=== PATIENT | female | born 2000 | race Hispanic/Latino ===

== ENCOUNTER 2019-09-15 19:26 | Emergency (ER) | payer MEDICAID ==
[2019-09-15 19:59] VITALS: BP 111/59
--- NOTE | 2019-09-15 19:59 | Emergency Department Report ---
Chief Complaint: Fever Stated Complaint: COUGH,FEVER,MCKAYLA,DIARRHEA Time Seen by Provider: 09/15/19 19:54 - HPI History of Present Illness: pt is a 19 yo female who presents to the ED with c/o body aches that began 3-4 days ago. she has associated chills. she states her temperature at its highest was 100.0. she has not taken anything for fever. she states she has had diarrhea, she states she only has two episodes a day but it is not every day. she denies any n/v. she states she has an occasional cough but she states it has "gone down and is better." she does not report any CP, SOB, leg swelling. no PMHx. no allergies to meds. she states she has had a positive contact at work and with her boyfriend. she is a non smoker. Patient was in the emergency room last week for similar symptoms and had a normal chest x-ray at that time. Patient's labs are stable, heart rate is the same as previous visits She has no tachycardia, no fever, no hypoxia, no hypotension On exam: Non toxic appearing, no acute distress atraumatic, normocephalic normal appearance of the eyes, PERRL, EOMI, no periorbital edema or ecchymosis moist mucus membranes, normal oropharynx, normal nasal turbinates, normal TMs and canals bilaterally regular heart rate and rhythm, no gallops, no rubs, no murmurs breath sounds are clear bilaterally, no w/r/r, no stridor, no respiratory distress, no accessory muscle use A&O x4, no focal neuro deficit skin is warm, dry, intact Patient is presenting with viral-like symptoms Could be related to COVID-19 as she has had a positive contact She is not having chest pain or shortness of breath She has no signs of dehydration Her vitals are normal She is not hypoxic or tachycardic or febrile she has no past medical history She is a non-smoker Discussed supportive care and symptomatic treatment with patient Discussed the importance of oral hydration Discussed in detail with patient strict return precautions Discussed self quarantine advised pt please increase your fluid intake for the next several days. make take tylenol as needed for fever and body aches. follow up with a primary care doctor in 3 days for reexamination. discuss COVID testing with the primary care doctor, health department, [facility], or [facility]. please self quarantine for 2 weeks. please do not go out in public. if you are around others at home wear a mask. if you need to cough or sneeze please do so in a napkin and immediately throw it away and wash your hands. wash your hands frequently, wipe every thing down. return to the emergency room for any new or worsening symptoms Medical screening examination performed and there is no threat to life or limb at this time - Exam Vital Signs: Vital Signs 09/15/19 19:31 Temperature 99.0 F Pulse Rate 49 L Respiratory 18 Rate Blood Pressure 109/62 O2 Sat by Pulse 99 Oximetry MSE screening note: Focused history and physical exam performed. ED Disposition for MSE Clinical Impression: Encounter for medical screening examination Disposition: MED SCREENING EXAM-LEFT Is pt being admited?: No Does the pt Need Aspirin: No Condition: Stable Instructions: COVID-19, Viral Syndrome (ED) Additional Instructions: please increase your fluid intake for the next several days. make take tylenol as needed for fever and body aches. follow up with a primary care doctor in 3 days for reexamination. discuss COVID testing with the primary care doctor, health department, [facility], or [facility]. please self quarantine for 2 weeks. please do not go out in public. if you are around others at home wear a mask. if you need to cough or sneeze please do so in a napkin and immediately throw it away and wash your hands. wash your hands frequently, wipe every thing down. return to the emergency room for any new or worsening symptoms Referrals: RACHEL CAGLE MD [Staff Physician] - 2-[address] [facility] [Provider Group] - 2-3 Days [facility] [Outside] - 2-3 Days [facility] [Outside] - 2-3 Days Forms: Work/School Release Form(ED) Time of Disposition: 20:00 Print Language: SLOVAK
== END 2019-09-15 20:23 | disposition left against medical advice (07) ==
LOC: ED 19:26
DX: R50.9 Fever, unspecified (principal); R19.7 Diarrhea, unspecified; M79.10 Myalgia, unspecified site; Z53.21 Procedure and treatment not carried out due to patient leaving prior to being seen by health care provider

== ENCOUNTER 2019-09-28 05:37 | Emergency (ER) | payer MEDICAID ==
--- NOTE | 2019-09-28 06:37 | XRay Report ---
LEFT HIP 2 VIEWS INDICATION / CLINICAL INFORMATION: Fall with left hip pain. COMPARISON: None available. FINDINGS: BONES / JOINT(S): The hip and SI joint spaces are well-maintained. There is no evidence of fracture o r dislocation. SOFT TISSUES: No significant abnormality. ADDITIONAL FINDINGS: None. Signer Name: Seth Youngblood MD Signed: 09/28/2019 6:33 AM Workstation Name: [email or web address]
[2019-09-28] MEDS ORDERED: MORPHINE 2 MG/1 ML INJ IV ONE (08:19)
--- NOTE | 2019-09-28 08:25 | Emergency Department Report ---
HPI - General Chief Complaint: Extremity Injury, Lower Time Seen by Provider: 09/28/19 08:01 - HPI HPI: This is a 19-year-old -Citizen Of [place] female who presents to the emergency department with a complaint of some left lower back pain after she fell off of the table last night. She denies hitting her head or any loss of consciousness. Since that time she has been having difficulty bearing weight to the left lower extremity. She has not taken anything for symptoms prior to presentation. No past medical history. ED Past Medical Hx - Past Medical History Previous Medical History?: No - Surgical History Past Surgical History?: No - Social History Smoking Status: Current Every Day Smoker Substance Use Type: None - Medications Home Medications: Home Medications Medication Instructions Recorded Confirmed Last Taken Type guaiFENesin [Robitussin] 5 ml PO TID PRN #100 ml 09/10/19 Unknown Rx HYDROcodone/APAP 5-325 [[place] 1 each PO Q6HR PRN #12 tablet 09/28/19 Unknown Rx 5/325] Ibuprofen [Motrin 600 MG tab] 600 mg PO Q8H PRN #20 tablet 09/28/19 Unknown Rx ED Review of Systems ROS: Stated complaint: LF HIP PAIN S/P FALL Other details as noted in HPI Comment: All other systems reviewed and negative Constitutional: denies: chills, fever Respiratory: denies: shortness of breath Cardiovascular: denies: chest pain Gastrointestinal: denies: abdominal pain Musculoskeletal: back pain, arthralgia, myalgia Neurological: denies: headache, numbness, paresthesias Physical Exam - Physical Exam Vital Signs: Vital Signs 09/28/19 05:43 Temperature 98.6 F Pulse Rate 87 Respiratory 20 Rate Blood Pressure 134/82 O2 Sat by Pulse 100 Oximetry Physical Exam: GENERAL: The patient is well-developed well-nourished. HENT: Normocephalic. Atraumatic. Patient has moist mucous membranes. EYES: Extraocular motions are intact. NECK: Supple. Trachea is midline. CHEST/LUNGS: Clear to auscultation. There is no respiratory distress noted. HEART/CARDIOVASCULAR: Regular. There is no tachycardia. ABDOMEN: Abdomen is soft, nontender. Patient has normal bowel sounds. SKIN: Skin is warm and dry. NEURO: The patient is awake, alert, and oriented. The patient is cooperative. The patient has no focal neurologic deficits. Normal speech. MUSCULOSKELETAL: There is no tenderness to palpation of any of the 4 extremities. No tenderness to palpation with compression of the pelvis. There is no limitation range of motion. BACK: No midline thoracic or lumbar tenderness to palpation. There is some reproducible left lumbar paraspinal tenderness to palpation. ED Course Vital Signs 09/28/19 05:43 Temperature 98.6 F Pulse Rate 87 Respiratory 20 Rate Blood Pressure 134/82 O2 Sat by Pulse 100 Oximetry ED Medical Decision Making - Lab Data Result diagrams: 09/28/19 08:23 09/28/19 08:23 - Radiology Data Radiology results: report reviewed, image reviewed interpreted by me: X-ray of the left hip does not show any fracture or dislocation. XR spine lumbosacral 2-3V INDICATION / CLINICAL INFORMATION: fall, back pain. COMPARISON: None available. FINDINGS: BONES/JOINT(S): No acute fracture or subluxation. No significant degenerative changes. SOFT TISSUES: No significant abnormality. ADDITIONAL FINDINGS: None. CT ABDOMEN AND PELVIS WITH CONTRAST HISTORY: Trauma, left-sided abdominal pain COMPARISON: None TECHNIQUE: Routine abdominal and pelvic CT exam performed following intravenous contrast administration. The patient received 100 mL of IV Omnipaque 300. All CT scans at this location are performed using CT dose reduction for ALARA by means of automated exposure control. FINDINGS: CT ABDOMEN: Lung Bases: No significant abnormality. Liver: No significant abnormality. Biliary: No significant abnormality. Spleen: No significant abnormality. Unenlarged. Pancreas: No significant abnormality. Adrenals: No significant abnormality. Kidneys: No significant abnormality. Lymphatics: No lymphadenopathy. Vasculature: No significant abnormality. Bowel/Peritoneum: No significant abnormality. No free air. No free fluid. CT PELVIC: : No significant abnormality. Lymphatics: No lymphadenopathy. Osseous Structures: There are nondisplaced fractures of the left L2 and L3 transverse processes. There are no other acute fractures. Additional Findings: None IMPRESSION: 1. Nondisplaced fractures of the left L2 and L3 transverse processes. 2. No additional acute findings. - Medical Decision Making This patient presents to the emergency department with a complaint of pain to the left lower back after she fell onto her back from a table last night. Initially, through triage, the patient had an x-ray of her left hip that did not show any fracture, dislocation, or any acute process. On examination the patient does not have any midline thoracic or lumbar tenderness to palpation, step-off or deformity. She has reproducible pain to the lumbar left paraspinal and lateral muscles/back. An x-ray was done of the lumbar spine but it was read by radiology as no fracture, subluxation, or any acute process. The patient still complained of moderate discomfort after receiving IV analgesia, and her pain was not midline, so a CT scan of the abdomen pelvis with IV contrast was completed that showed nondisplaced fractures of the left L2 and L3 transverse process. All of the lab and imaging results were discussed with the patient, as well as the plan for outpatient follow-up with an orthopedist. The patient has been placed on crutches and given a prescription for pain medication. She was given multiple referrals for local orthopedist. She will return to the ER with any worsening of her symptoms or any acute distress. Critical Care Time: No Critical care attestation.: If time is entered above; I have spent that time in minutes in the direct care of this critically ill patient, excluding procedure time. ED Disposition Clinical Impression: Fracture of transverse process of lumbar vertebra Qualifiers: Encounter type: initial encounter Fracture type: closed Qualified Code(s): S32.009A - Unspecified fracture of unspecified lumbar vertebra, initial encounter for closed fracture Disposition: - TO HOME OR SELFCARE Is pt being admited?: No Condition: Stable Additional Instructions: You have a fracture of the left transverse process of your L2 and L3 lumbar spine. There is no fracture of the vertebral body. Please try and avoid any further falls or any trauma. Avoid any contact sports. Do not lift anything heavier than 10 lbs. I am giving you multiple referrals for local orthopedic groups to follow-up regarding your injury. Return to the emergency department with any worsening of your symptoms or any acute distress. You have been prescribed a medication that is sedating and therefore should not be taken prior to driving, working, and responsible for children and in no way should be mixed with alcohol of any quantity. Prescriptions: Ibuprofen [Motrin 600 MG tab] 600 mg PO Q8H PRN #20 tablet PRN Reason: Pain HYDROcodone/APAP 5-325 [[place] 5/325] 1 each PO Q6HR PRN #12 tablet PRN Reason: Pain Referrals: MARITZA VO MD [Primary Care Provider] - 3-5 Days MEG MARINO MD [Staff Physician] - 3-5 Days [facility] [Provider Group] - 3-5 Days Time of Disposition: 12:55
[2019-09-28 08:43] LABS: Eosinophils % (Auto) 0.9 % (0.0-4.3); Hematocrit 36.3 % (30.3-42.9); Hemoglobin 11.6 gm/dl (10.1-14.3); Lymphocytes # (Auto) 1.4 K/mm3 (1.2-5.4); Lymphocytes % (Auto) 31.2 % (13.4-35.0); Mean Corpuscular HGB Conc 32 % (30-34); Mean Corpuscular Volume 85 fl (79-97); Monocytes # (Auto) 0.6 K/mm3 (0.0-0.8); Monocytes % (Auto) 14.5 % (0.0-7.3); Platelet Count 212 K/mm3 (140-440); Red Blood Count 4.25 M/mm3 (3.65-5.03); Red Cell Distribution Width 15.8 % (13.2-15.2)
--- NOTE | 2019-09-28 08:56 | XRay Report ---
XR spine lumbosacral 2-3V INDICATION / CLINICAL INFORMATION: fall, back pain. COMPARISON: None available. FINDINGS: BONES/JOINT(S): No acute fracture or subluxation. No significant degenerative changes. SOFT TISSUES: No significant abnormality. ADDITIONAL FINDINGS: None. Signer Name: Yaw Weir MD Signed: 09/28/2019 8:52 AM Workstation Name: [email or web address]
[2019-09-28 09:51] LABS: BUN/Creatinine Ratio 19; Blood Urea Nitrogen 13 mg/dL (7-17); Calcium 9.5 mg/dL (8.4-10.2); Hemolysis Index 2
[2019-09-28] MEDS ORDERED: KETOROLAC 30 MG/1 ML INJ IV ONE (12:10)
--- NOTE | 2019-09-28 12:16 | Cat Scan Report ---
CT ABDOMEN AND PELVIS WITH CONTRAST HISTORY: Trauma, left-sided abdominal pain COMPARISON: None TECHNIQUE: Routine abdominal and pelvic CT exam performed following intravenous contrast administrat ion. The patient received 100 mL of IV Omnipaque 300. All CT scans at this location are performed usi ng CT dose reduction for ALARA by means of automated exposure control. FINDINGS: CT ABDOMEN: Lung Bases: No significant abnormality. Liver: No significant abnormality. Biliary: No significant abnormality. Spleen: No significant abnormality. Unenlarged. Pancreas: No significant abnormality. Adrenals: No significant abnormality. Kidneys: No significant abnormality. Lymphatics: No lymphadenopathy. Vasculature: No significant abnormality. Bowel/Peritoneum: No significant abnormality. No free air. No free fluid. CT PELVIC: : No significant abnormality. Lymphatics: No lymphadenopathy. Osseous Structures: There are nondisplaced fractures of the left L2 and L3 transverse processes. Ther e are no other acute fractures. Additional Findings: None IMPRESSION: 1. Nondisplaced fractures of the left L2 and L3 transverse processes. 2. No additional acute findings. Signer Name: Yaw Weir MD Signed: 09/28/2019 12:11 PM Workstation Name: [id number]
[2019-09-28] MEDS ORDERED: MORPHINE 4 MG/1 ML INJ IV ONE (12:25)
[2019-09-28 13:45] VITALS: BP 112/67
== END 2019-09-28 13:30 | disposition home or self-care (01) ==
LOC: ED 05:37
DX: S32.009A Unspecified fracture of unspecified lumbar vertebra, initial encounter for closed fracture (principal); F17.200 Nicotine dependence, unspecified, uncomplicated; Z79.1 Long term (current) use of non-steroidal anti-inflammatories (NSAID); Z79.899 Other long term (current) drug therapy; W18.39XA Other fall on same level, initial encounter; Y93.89 Activity, other specified; Y92.89 Other specified places as the place of occurrence of the external cause; Y99.8 Other external cause status
CPT/HCPCS: 36415; 72100; 73502; 74177; 80048; 84703; 85025; 96374; 96375; 96376; 99285; J1885; J2270; Q9967

== ENCOUNTER 2020-03-10 17:28 | Emergency (ER) | payer MEDICAID ==
[2020-03-10 20:03] VITALS: BP 113/46
--- NOTE | 2020-03-10 20:56 | Emergency Department Report ---
Chief Complaint: Upper Respiratory Infection Stated Complaint: SICK/COLD Time Seen by Provider: 03/10/20 20:52 - HPI History of Present Illness: Patient is a 20-year-old female presents emergency room complaints of cold symptoms that began 2 days ago. She has associated generalized body aches, chills, nasal congestion, rhinorrhea, sneezing. She denies any fever, cough, shortness of breath, chest pain, abdominal pain, vomiting, diarrhea. She denies any past medical history allergies medications. She states her last menstrual cycle was 02/09/2020, she denies any abdominal pain or vaginal bleeding, she denies any possibility of . She states that she has been taking TheraFlu and ynbm-bkv-ptuqane cold medication. She denies any sick contacts or recent travel. She states that she is a non-smoker. Vitals are all normal No hypoxia, no tachycardia, no fever On exam: Non toxic appearing, no acute distress atraumatic, normocephalic normal appearance of the eyes, PERRL, EOMI, no periorbital edema or ecchymosis moist mucus membranes, normal TMs and canals bilaterally, normal oropharynx, no sinus tenderness palpation bilaterally regular heart rate and rhythm, no gallops, no rubs, no murmurs breath sounds are clear bilaterally, no w/r/r, no stridor, no respirations, no accessory muscle use A&O x4, no focal neuro deficit skin is warm, dry, intact Patient is presenting with viral URI seems more likely to be a common cold She has no clinical signs of bacterial pneumonia or bacterial bronchitis No clinical signs of dehydration Patient is presenting during a COVID-19 pandemic, discussed COVID-19 with patient, discussed return precautions, discussed outpatient testing, discussed self quarantine She has no signs of severe COVID-19 She does not meet hospital criteria for admission or for hospital COVID-19 testing Discussed supportive care and symptomatic treatment with patient Patient referred to primary care doctor Discussed strict return precautions in detail patient Medical screening examination performed there is no threat to life or limb at this time - Exam Vital Signs: Vital Signs 03/10/20 19:21 Temperature 97.9 F Pulse Rate 63 Respiratory 16 Rate Blood Pressure 113/46 O2 Sat by Pulse 100 Oximetry MSE screening note: Focused history and physical exam performed. ED Disposition for MSE Clinical Impression: Viral URI Disposition: MED SCREENING EXAM-LEFT Is pt being admited?: No Does the pt Need Aspirin: No Condition: Stable Instructions: Viral Respiratory Infection Additional Instructions: Please increase your fluid intake over the next several days. May take Tylenol as needed for fever or body aches. May take aduv-hcq-yowoshr cold symptom relief medication such as Mucinex and use over the counter flonase nasal spray. Follow-up with a primary care doctor for reexamination. Return to emergency room immediately for any new or worsening symptoms including but not limited to difficulty breathing, shortness of breath, severe chest pain, unable to tolerate by mouth intake, etc. Please self quarantine for 10 days from the onset of your symptoms. Please do not go out in public. If you are around others at home please wear a mask. If you need to cough or sneeze please do so in a napkin and immediately throw it away and immediately wash your hands. Wash your hands frequently. Wipe everything down. Recommend for you to get COVID-19 testing, may have this done at primary care doctor, health department, [facility] testing center. Referrals: RACHEL CAGLE MD [Staff Physician] - 2-3 Days [facility] [Provider Group] - 2-3 Days Forms: Work/School Release Form(ED) Time of Disposition: 20:55 Print Language: FAROESE
== END 2020-03-10 21:30 | disposition left against medical advice (07) ==
LOC: ED 17:28
DX: J00 Acute nasopharyngitis [common cold] (principal); Z53.21 Procedure and treatment not carried out due to patient leaving prior to being seen by health care provider

== ENCOUNTER 2021-07-25 23:12 | Emergency (ER) | payer MEDICAID ==
[2021-07-26] MEDS ORDERED: BENZONATATE 100 MG CAP PO ONE (03:51)
[2021-07-26] MEDS ORDERED: predniSONE 20 MG TAB PO ONE (03:51)
[2021-07-26] MEDS ORDERED: KETOROLAC 10 MG TAB PO ONE (03:51)
[2021-07-26] MEDS ORDERED: ACETAMINOPHEN W/CODEINE 300-30 MG TAB PO ONE (03:52)
--- NOTE | 2021-07-26 03:57 | Emergency Department Report ---
- General Chief Complaint: Upper Respiratory Infection Stated Complaint: FLU LIKE SYMPTOMS/ABD & CHEST PAIN Time Seen by Provider: 07/26/21 03:08 Source: patient Mode of arrival: Ambulatory Limitations: No Limitations - History of Present Illness Initial Comments: 21 yof with no pmh presents to ed for evaluation of few day history of body aches, fever, sweats, cough, and decreased appetite. She states that her Tmax was 101.9. She denies cp and sob. She states that pain is 9/10. MD Complaint: fever, cough, rhinorrhea, nasal congestion -: days(s) (2-3) Severity: severe Severity scale (0 -10): 10 Quality: aching Consistency: constant Associated Symptoms: fever, myalgias, headache, rhinorrhea, nasal congestion, cough, nausea, diarrhea. denies: chills, diaphoresis, sore throat, stiff neck, chest pain, shortness of breath, abdominal pain, vomiting, dysuria, rash, hoarseness - Related Data Previous Rx's Medication Instructions Recorded Last Taken Type guaiFENesin [Robitussin] 5 ml PO TID PRN #100 ml 09/10/19 Unknown Rx HYDROcodone/APAP 5-325 [[place] 1 each PO Q6HR PRN #12 tablet 09/28/19 Unknown Rx 5/325] Ibuprofen [Motrin 600 MG tab] 600 mg PO Q8H PRN #20 tablet 09/28/19 Unknown Rx Benzonatate [Tessalon Perles] 100 mg PO Q8HR #21 cap 07/26/21 Unknown Rx Prednisone [predniSONE 10 mg 10 mg PO .TAPER #1 pack 07/26/21 Unknown Rx (6-Day Pack, 21 Tabs)] guaiFENesin/CODEINE [Robitussin AC] 10 ml PO TID PRN #120 ml 07/26/21 Unknown Rx Allergies Allergy/AdvReac Type Severity Reaction Status Date / Time No Known Allergies Allergy Verified 09/15/19 19:35 ED Review of Systems ROS: Stated complaint: FLU LIKE SYMPTOMS/ABD & CHEST PAIN Other details as noted in HPI Comment: All other systems reviewed and negative Constitutional: fever. denies: chills ENT: congestion. denies: ear pain Respiratory: cough. denies: orthopnea, shortness of breath, SOB with exertion, SOB at rest, stridor, wheezing Cardiovascular: denies: chest pain, palpitations, dyspnea on exertion, orthopnea, edema, syncope, paroxysmal nocturnal dyspnea Gastrointestinal: denies: abdominal pain, nausea, vomiting Genitourinary: denies: urgency, dysuria, frequency, hematuria, discharge Musculoskeletal: myalgia. denies: back pain Neurological: headache ED Past Medical Hx - Social History Smoking Status: Current Some Day Smoker Substance Use Type: None - Medications Home Medications: Home Medications Medication Instructions Recorded Confirmed Last Taken Type guaiFENesin [Robitussin] 5 ml PO TID PRN #100 ml 09/10/19 Unknown Rx HYDROcodone/APAP 5-325 [[place] 1 each PO Q6HR PRN #12 tablet 09/28/19 Unknown Rx 5/325] Ibuprofen [Motrin 600 MG tab] 600 mg PO Q8H PRN #20 tablet 09/28/19 Unknown Rx Benzonatate [Tessalon Perles] 100 mg PO Q8HR #21 cap 07/26/21 Unknown Rx Prednisone [predniSONE 10 mg 10 mg PO .TAPER #1 pack 07/26/21 Unknown Rx (6-Day Pack, 21 Tabs)] guaiFENesin/CODEINE [Robitussin AC] 10 ml PO TID PRN #120 ml 07/26/21 Unknown Rx ED Physical Exam - General Limitations: No Limitations General appearance: alert, in no apparent distress - Head Head exam: Present: atraumatic, normocephalic - Eye Eye exam: Present: normal appearance. Absent: conjunctival injection - ENT ENT exam: Absent: normal exam (bilateral nasal mucosal edema), normal orophraynx (erythema to posterior oropharynx) - Neck Neck exam: Present: normal inspection. Absent: tenderness, meningismus, lymphadenopathy - Respiratory Respiratory exam: Present: normal lung sounds bilaterally, chest wall tenderness. Absent: respiratory distress, wheezes, rales, rhonchi, stridor - Cardiovascular Cardiovascular Exam: Present: regular rate, normal heart sounds - GI/Abdominal GI/Abdominal exam: Present: soft, normal bowel sounds. Absent: distended, tenderness, guarding, rebound, rigid - Extremities Exam Extremities exam: Present: normal inspection, normal capillary refill. Absent: pedal edema, joint swelling, calf tenderness - Back Exam Back exam: Present: normal inspection. Absent: CVA tenderness (R), CVA tenderness (L) - Neurological Exam Neurological exam: Present: alert, oriented X3, normal gait - Psychiatric Psychiatric exam: Present: normal affect, normal mood - Skin Skin exam: Present: warm, dry, normal color ED Course Vital Signs 07/26/21 07/26/21 02:10 04:22 Temperature 101.9 F H Pulse Rate 78 72 Respiratory 20 12 Rate Blood Pressure 106/65 116/72 [Right] O2 Sat by Pulse 100 100 Oximetry ED Medical Decision Making - Medical Decision Making 21 yof with no pmh presents to ed for evaluation of few day history of body aches, fever, sweats, cough, and decreased appetite. She states that her Tmax was 101.9. She denies cp and sob. She states that pain is 9/10. Exam and symptoms consistent with viral syndrome. She will be treated with steroid pack, tessalon perles, and robitussin AC. She is advised to take mediations as prescribed and follow up with pcp if no improvement or worsening symptoms. She is advised to return to Ed for any concerning symptoms. She verbalized understanding of and agreement with plan of care. Critical care attestation.: If time is entered above; I have spent that time in minutes in the direct care of this critically ill patient, excluding procedure time. ED Disposition Clinical Impression: Viral syndrome Disposition: 01 HOME / SELF CARE / HOMELESS Is pt being admited?: No Does the pt Need Aspirin: No Condition: Stable Instructions: Viral Illness, Adult Additional Instructions: Take medications as prescribed. Follow-up with primary care provider if no improvement or worsening symptoms. Return to the emergency department as needed. Prescriptions: Prednisone [predniSONE 10 mg (6-Day Pack, 21 Tabs)] 10 mg PO .TAPER #1 pack guaiFENesin/CODEINE [Robitussin AC] 10 ml PO TID PRN #120 ml PRN Reason: Cough Benzonatate [Tessalon Perles] 100 mg PO Q8HR #21 cap Referrals: RACHEL CAGLE MD [Staff Physician] - 3-5 Days Forms: Work/School Release Form(ED) Time of Disposition: 03:57
[2021-07-26 04:23] VITALS: BP 116/72
== END 2021-07-26 04:23 | disposition home or self-care (01) ==
LOC: ED 23:12
DX: B34.9 Viral infection, unspecified (principal); R50.9 Fever, unspecified; R05.9 Cough, unspecified; F17.200 Nicotine dependence, unspecified, uncomplicated; Z79.899 Other long term (current) drug therapy
CPT/HCPCS: 99282